=== PATIENT | female | born 1990 | race Asian ===

== ENCOUNTER 2021-07-19 01:13 | Outpatient (CLI) | payer OTHER ==
[~2021-07-19] VITALS: Ht 157.5 cm; Wt 55.5 kg
--- NOTE | 2021-07-19 01:25 | NUR ---
G1 at 38 weeks and 5 days arrives to hospital with complaint of contractions. Reports she has been arvin irregularly for a few days but around 2300 became more consistent and regular. Pt reports good movement, denies vaginal bleeding, or LOF. Denies headaches, blurry vision, or RUQ pain. Pt oriented to room, call light within reach, bed in low and locked position. Clean gown on. US and toco explained and applied. Vital signs obtained. Admission assessment started. Plan of care reviewed. SVE /-2 posterior. Membranes intact.
[2021-07-19 01:45] VITALS: BP 122/78; PULSE 91; TEMP 97.9
[2021-07-19] MEDS ORDERED: PRENATAL TABLET PO (01:57)
[2021-07-19 02:15] VITALS: BP 129/81; PULSE 93
[2021-07-19 02:45] VITALS: BP 122/84; PULSE 83
--- NOTE | 2021-07-19 03:00 | NUR ---
0200 - RN to bedside. Pt reports no change in contractions, feeling them about every 5 minutes. Monitors off to use restroom. 0230 - SVE unchanged at /-2, membranes intact. Posterior position 0300 - Discharge instructions reviewed with patient and spouse, verbalized understanding. Educated on return precautions. Pt seen ambulating off unit with spouse.
[2021-07-21] MEDS ORDERED: MOTRIN 800800 MG/TAB PO (10:41)
[2021-07-21] MEDS ORDERED: PERCOCET 325 MG1 TA2 PO (10:41)
== END 2021-07-19 03:00 | disposition home or self-care (01) ==
LOC: LDRO 01:13 → LDR 01:25 → LDRO 03:00
DX: O62.9 Abnormality of forces of labor, unspecified (principal); Z3A.38 38 weeks gestation of pregnancy
CPT/HCPCS: OP

== ENCOUNTER 2024-03-05 23:19 | Inpatient (IN) | payer OTHER, MEDICAID ==
[~2024-03-05] VITALS: Ht 157.5 cm; Wt 63.2 kg
[~2024-03-05 23:19] MED LIST: MOTRIN 800800 MG/TAB PO; PERCOCET 325 MG1 TA2 PO; PRENATAL TABLET PO
[2024-03-05 23:45] VITALS: BP 133/81; PULSE 103; TEMP 98.5
[2024-03-06] VITALS (22 sets, daily range): BP systolic 100–138; BP diastolic 51–90; PULSE 74–123; TEMP 97.6–98.6
--- NOTE | 2024-03-06 | NUR ---
Ambulatory to unit for labor assessment. and toddler waiting in waiting in room. Oriented to room, monitor, plan of care. Pt reports "my water broke at 9:00 tonight. My contractions started at 37 wks. I am very tired." SVE 1+/80/-3, no pooling of fluid or bloody show with exam. Amniorace with no color change noted. Rom+ collected.
[2024-03-06] MEDS ORDERED: LR & Oxytocin 500 ML IV SCH (01:00)
[2024-03-06] MEDS ORDERED: LR 1,000 ML IV SCH (01:00)
[2024-03-06 02:00] LABS: HEMOGLOBIN 10.7 g/dl (12.5-16.0); MEAN CELL VOLUME 86 fl (80.0-100.0); MEAN CORPUSCULAR HEMOGLOBIN 27 pg (27-31); MEAN CORPUSCULAR HGB CONC 31 g/dl (33.0-37.0); MEAN PLATELET VOLUME 12.7 fl (7.4-10.4); PLATELET COUNT 172 K/mm3 (130-400); RED BLOOD COUNT 4.02 M/mm3 (4.10-5.30); REDCELL DISTRIBUTION WIDTH-CV 14.6 % (11.5-14.5)
[2024-03-06 02:03] LABS: HEMATOCRIT 34.7 % (37.0-47.0)
[2024-03-06 02:32] LABS: BAND 1 % (0-10); LYMPHOCYTE 17 % (20.0-51.0); NEUTROPHILS 75 % (42.0-75.2); PLATELET ESTIMATE NORMAL (NORMAL)
[2024-03-06] MEDS ORDERED: ePHEDrine 50 MG/10 ML VIAL IV PRN (03:45)
[2024-03-06] MEDS ORDERED: diphenhydrAMINE 25 MG CAP PO PRN (03:45)
[2024-03-06] MEDS ORDERED: Naloxone 0.4 MG/ML VIAL IV PRN (03:45)
[2024-03-06] MEDS ORDERED: diphenhydrAMINE 50 MG/ML 1 ML VIAL IV PRN (03:45)
[2024-03-06] MEDS ORDERED: Ondansetron 4 MG/2 ML VIAL IV PRN (03:45)
--- NOTE | 2024-03-06 06:20 | NUR ---
RECEIVED REPORT FROM MERCEDEZ Ty RN. THIS RN AT BEDSIDE TO START PITOCIN PER DR. ARAMBULA ORDER. PT ASLEEP AT THIS TIME. PITOCIN STARTED. VS STABLE. EFM CAT 1.
--- NOTE | 2024-03-06 11:35 | NUR ---
JARRED PHIPPS AT BEDSIDE FOR SVE COMPLETE/+2. PT READY TO PUSH. STAFF NOTIFIED. PEARSON REMOVED. 1148 OF VIABLE FEMAL PER . 5 SECOND SHOULDER DYSTOICA NOTED, RESOLVED WITH MCCROBERTS. PLACED ON MOTHERS CHEST, CARE ASSUMED BY NURSERY RN. AGPARS 9,9,9. [address] STERN. HEAVY FLOW OF BLOOD NOTED, FUNDUS BOGGY, MANUAL MASSAGE DONE. CALLED CHARGE FOR METHERGINE AND CONTINUED MASSAGE. DR. STERN REPAIRS 2ND DEGREE LACERATION. PT CLEANED OFF AND BED PUT BACK TOGETHER. GRACIE WNL AT THIS TIME.
[2024-03-06] MEDS ORDERED: Methylergonovine 0.2 MG/ML 1 ML AMPUL IM SCH (12:07)
[2024-03-06] MEDS ORDERED: LR 1,000 ML IV PRN (23:45)
--- NOTE | 2024-04-03 00:02 | NUR ---
DOWNTIME NOTE: An Electronic Health Record (EHR) downtime event occurred during this patient's care. For legal medical record information generated during the downtime period, please reference the patient's legal medical record. Paper or scanned documentation has been incorporated into the legal medical record which is maintained in accordance with Health Information Management (HIM) and record retention policies.
== END 2024-03-07 16:55 | disposition home or self-care (01) | DRG 807 ==
LOC: LDRO 23:19 → LDR 03-06 01:17
PROVIDERS: Obstetrics & Gynecology; ADMIT Obstetrics & Gynecology
PROC: 10E0XZZ Delivery of Products of Conception, External Approach (ICD-10-PCS; principal; 2024-03-06)
PROC: 0KQM0ZZ Repair Perineum Muscle, Open Approach (ICD-10-PCS; 2024-03-06)
DX: O99.02 Anemia complicating childbirth (principal); Z37.0 Single live birth; Z3A.38 38 weeks gestation of pregnancy; O70.1 Second degree perineal laceration during delivery; O66.0 Obstructed labor due to shoulder dystocia; O75.89 Other specified complications of labor and delivery; D64.9 Anemia, unspecified
CPT/HCPCS: J2210; J2590; J7120